=== PATIENT | male | born 1985 | race African-American/Black ===

== ENCOUNTER 2021-01-15 12:01 | Emergency (ER) | payer SELFPAY ==
[~2021-01-15] VITALS: Ht 182.9 cm; Wt 88.5 kg
[2021-01-15] MEDS ORDERED: IBUPROFEN IB200 MG PO (12:17)
[2021-01-15] MEDS ORDERED: ACETAMINOPHEN500 MG PO (12:17)
[2021-01-15] MEDS ORDERED: AMOXICILLIN500 MG PO (12:17)
== END 2021-01-15 12:30 | disposition home or self-care (01) ==
LOC: FSED 12:15
DX: K04.7 Periapical abscess without sinus (principal); K02.9 Dental caries, unspecified
CPT/HCPCS: 99282

== ENCOUNTER 2021-05-10 10:29 | Emergency (ER) | payer MEDICAID ==
[~2021-05-10] VITALS: Ht 182.9 cm; Wt 90.7 kg
[~2021-05-10 10:29] MED LIST: ACETAMINOPHEN500 MG PO; AMOXICILLIN500 MG PO; IBUPROFEN IB200 MG PO
[2021-05-10] MEDS ORDERED: ONDANSETRON HCL INJ 2MG/ML 2ML 2 MG/ML VIAL IV STA (10:45)
[2021-05-10] MEDS ORDERED: HYDRALAZINE HCL 20 MG/ML VIAL IV ONE (10:45)
[2021-05-10] MEDS ORDERED: ONDANSETRON ODT4 MG PO (12:14)
[2021-05-10] MEDS ORDERED: PRINIVIL20 MG PO (12:14)
[2021-05-10 12:22] VITALS: BP 139/100
== END 2021-05-10 12:30 | disposition home or self-care (01) ==
LOC: FSED 10:46
DX: R11.2 Nausea with vomiting, unspecified (principal); R10.33 Periumbilical pain; R19.7 Diarrhea, unspecified; K76.9 Liver disease, unspecified
CPT/HCPCS: 74176; 80048; 80076; 81003; 85025; 99284; J0360; J2405

== ENCOUNTER 2021-07-22 20:00 | Emergency (ER) | payer MEDICAID ==
[~2021-07-22] VITALS: Ht 182.9 cm; Wt 90.7 kg
[~2021-07-22 20:00] MED LIST changes: +ONDANSETRON ODT4 MG PO; +PRINIVIL20 MG PO
[2021-07-22] MEDS ORDERED: CYCLOBENZAPRINE10 MG PO (20:32)
[2021-07-22] MEDS ORDERED: LIDOCAINE1 EAC1 TD (20:32)
[2021-07-22] MEDS ORDERED: NAPROXEN250 MG PO (20:32)
[2021-07-22] MEDS ORDERED: KETOROLAC TROMETHAMINE 30 MG/ML VIAL IM STA (20:32)
[2021-07-22] MEDS ORDERED: KETOROLAC TROMETHAMINE 60 MG/2 ML VIAL ONE (20:44)
[2021-07-22] MEDS ORDERED: CYCLOBENZAPRINE HCL 10 MG TAB PO ONE (20:45)
[2021-07-22] MEDS ORDERED: CYCLOBENZAPRINE HCL 10 MG TAB ONE (20:47)
== END 2021-07-22 21:05 | disposition home or self-care (01) ==
LOC: FSED 20:13
DX: M54.50 Low back pain, unspecified (principal); M79.18 Myalgia, other site; X50.0XXA Overexertion from strenuous movement or load, initial encounter; Y99.0 Civilian activity done for income or pay; I10 Essential (primary) hypertension
CPT/HCPCS: 81003; 99283; J1885

== ENCOUNTER 2022-02-03 20:10 | Emergency (ER) | payer MEDICAID, OTHER ==
[~2022-02-03] VITALS: Ht 182.9 cm; Wt 90.7 kg
[~2022-02-03 20:10] MED LIST changes: +CYCLOBENZAPRINE10 MG PO; +LIDOCAINE1 EAC1 TD; +NAPROXEN250 MG PO
[2022-02-03] MEDS ORDERED: ONDANSETRON ODT4 MG PO (20:41)
[2022-02-03] MEDS ORDERED: IBUPROFEN400 MG PO (20:41)
[2022-02-03] MEDS ORDERED: PEPCID20 MG PO (20:41)
[2022-02-03] MEDS ORDERED: MAGNESIUM CITR296 ML PO (20:41)
[2022-02-03] MEDS ORDERED: ZESTRIL10 MG PO (20:42)
[2022-02-03] MEDS ORDERED: KETOROLAC TROMETHAMINE 60 MG/2 ML VIAL IM ONE (20:45)
[2022-02-03] MEDS ORDERED: ONDANSETRON HCL 4 MG ORAL DISINTEGRATING TAB PO ONE (20:45)
[2022-02-03] MEDS ORDERED: KETOROLAC TROMETHAMINE 60 MG/2 ML VIAL ONE (20:53)
[2022-02-03] MEDS ORDERED: ONDANSETRON HCL 4 MG ORAL DISINTEGRATING TAB ONE (20:54)
== END 2022-02-03 21:00 | disposition home or self-care (01) ==
LOC: FSED 20:16
DX: R11.2 Nausea with vomiting, unspecified (principal); K59.00 Constipation, unspecified; F12.20 Cannabis dependence, uncomplicated; I10 Essential (primary) hypertension; Z91.14 Patient's other noncompliance with medication regimen; F17.210 Nicotine dependence, cigarettes, uncomplicated
CPT/HCPCS: 99283; J1885; Q0162